=== PATIENT | male | born 1975 | race Caucasian/White ===

== ENCOUNTER 2017-01-06 18:17 | Emergency (ER) | payer BC, OTHER ==
[~2017-01-06] VITALS: Ht 182.9 cm; Wt 78.5 kg
[2017-01-06 18:32] VITALS: TEMP 36.5; Ht 182.9 cm; Wt 78.5 kg
[2017-01-06] MEDS ORDERED: CYAN100T PO (18:42)
[2017-01-06] MEDS ORDERED: IBUP-1050 PO (18:42)
[2017-01-06] MEDS ORDERED: SUMA50TA15 PO (18:42)
[2017-01-06] MEDS ORDERED: MAGN400T6 PO (18:42)
[2017-01-06 19:20] LABS: BASO % 0.4 %; BASO ABS # 0.03 K/uL (0-0.2); COMPLETE YES; EOS % 0.7 %; HEMATOCRIT 41.7 % (42-52); IG% 0.3 %; LYMPH % 36.5 %; LYMPH ABS # 2.47 K/uL (1.2-3.4); MEAN CELL VOLUME 87.2 fL (80-100); MEAN CORPUSCULAR HEMOGLOBIN 28.9 pg (25-34); MEAN CORPUSCULAR HGB CONC 33.1 g/dl (32-36); MEAN PLATELET VOLUME 10.2 fL (7.4-10.4); MONO % 6.8 %; NEUT % 55.3 %; PLATELET COUNT 242 K/uL (130-400); RED BLOOD COUNT 4.78 M/uL (4.7-6.1); WHITE BLOOD COUNT 6.76 K/uL (4.8-10.8)
[2017-01-06] MEDS ORDERED: SODIUM CHLORIDE 0.9% 1000ML 2,000 ML IV STA (19:22)
[2017-01-06 19:28] LABS: BUN/CREATININE RATIO 18.6 (10-20); CALCIUM 8.6 mg/dl (8.5-10.1); CREATININE 1.6 mg/dl (0.60-1.40); POTASSIUM 3.9 mmol/L (3.5-5.1)
--- NOTE | 2017-01-06 19:43 | EMERGENCY ROOM VISIT NOTE ---
History First contact with patient: 18:50 (Romain Arcos MD) First contact with patient: 18:50 (Renny Ojeda D.O.) Chief Complaint: DIZZY Stated Complaint: DIZZY Nursing Triage Summary: Radha arrives pale, sctot, diaphoretic from obstacle course at [employer]. EMS reports stable vital signs. Hypotensive on arrival. Patient's s/o at bedside reports radha recently started a high protein zero carb diet. Patient reports feelign dizzy and faint. Large posterior abrasion to left back and smaller ones to b/l knees (Romain Arcos MD) History of Present Illness The patient is a 41 year old male who presents to the Emergency Room with complaints of dizziness. The patient was at an obstacle course earlier this afternoon and ran it twice leading to extreme exhaustion. He also mentions that he ran on the treadmill this morning and has not been taking in many fluids. The patient also has been on a high protein low carb diet as a [facility] study for the last 3+ weeks. After running the obstacle course for the second time the patient felt very lightheaded and appeared pale. The patient states this is similar to an event he experienced several years ago at the gym when he over exerted himself and became dehydrated. The patient denies any headache or pain but does have a few abrasions from injuries sustained on the obstacle course. He has abrasions over his left bennett and scalp from hitting a tube on the course. He denies any vomiting, fever, chills, chest pain, abdominal pain, vision changes, or any other acute complaints. (Romain Arcos MD) Review of Systems See HPI for pertinent positives and negatives. A total of ten systems were reviewed and were otherwise negative. (Romain Arcos MD) Past Medical/Surgical History Medical Problems: (1) Murmur (Renny Ojeda D.O.) Social History Smoking Status: Never Smoker (Romain Arcos MD) Current/Historical Medications Scheduled Cyanocobalamin (Vitamin B-12), 100 MCG PO DAILY Magnesium Oxide (Mag-Ox), 400 MG PO DAILY Scheduled PRN Ibuprofen (Advil), 200-600 MG PO Q4H PRN for Headache Sumatriptan Succinate (Imitrex), 50 MG PO PRN PRN for Migraine Allergies Coded Allergies: Penicillins (Unverified Allergy, Unknown, ANAPHYLAXIS, 01/06/17) Patient had a reaction to PCNs as a child, not sure of the reaction. Physical Exam Vital Signs Date Time Temp Pulse Resp B/P (MAP) Pulse Ox O2 Delivery O2 Flow Rate FiO2 01/06/17 19:52 75 16 100 01/06/17 19:37 74 18 100 01/06/17 19:22 79 15 96 01/06/17 19:17 77 12 99 01/06/17 19:04 108/66 01/06/17 19:02 82 13 100 01/06/17 18:49 101/60 01/06/17 18:47 74 15 100 01/06/17 18:39 107/56 01/06/17 18:38 Room Air 01/06/17 18:33 82 01/06/17 18:32 82 14 100 01/06/17 18:32 36.5 87 22 99/47 97 01/06/17 18:26 103/55 01/06/17 18:20 99/47 (Renny Ojeda, Jona.Jason) Physical Exam GENERAL: Awake, alert, pale, in no distress HENT: Normocephalic, 1cm abrasion on the midline of the scalp EYES: Normal conjunctiva. Sclera non-icteric. NECK: Supple. No nuchal rigidity. RESPIRATORY: Clear to auscultation. CARDIAC: Regular rate, normal rhythm. Extremities warm and well perfused. Pulses equal. ABDOMEN: Soft, non-distended. No tenderness to palpation. RECTAL: Deferred. MUSCULOSKELETAL: Chest examination reveals no tenderness. Abrasions over the left side of the back. No visible ecchymosis and the patient denies any acute tenderness to palpation over the back. LOWER EXTREMITIES: Calves are equal size bilaterally and non-tender. No edema. No discoloration. NEURO: Normal sensorium. No sensory or motor deficits noted. SKIN: Abrasion over the left knee that is not actively bleeding (Romain Arcos MD) Medical Decision & Procedures Laboratory Results 01/06/17 18:40 Red Blood Count 4.78, Mean Corpuscular Volume 87.2, Mean Corpuscular Hemoglobin 28.9, Mean Corpuscular Hemoglobin Concent 33.1, Mean Platelet Volume 10.2, Neutrophils (%) (Auto) 55.3, Lymphocytes (%) (Auto) 36.5, Monocytes (%) (Auto) 6.8, Eosinophils (%) (Auto) 0.7, Basophils (%) (Auto) 0.4, Neutrophils # (Auto) 3.73, Lymphocytes # (Auto) 2.47, Monocytes # (Auto) 0.46, Eosinophils # (Auto) 0.05, Basophils # (Auto) 0.03 01/06/17 18:40 Test 01/06/17 18:30 01/06/17 18:40 Bedside Glucose 132 mg/dl (70-99) White Blood Count 6.76 K/uL (4.8-10.8) Red Blood Count 4.78 M/uL (4.7-6.1) Hemoglobin 13.8 g/dL (14.0-18.0) Hematocrit 41.7 % (42-52) Mean Corpuscular Volume 87.2 fL (80-100) Mean Corpuscular Hemoglobin 28.9 pg (25-34) Mean Corpuscular Hemoglobin Concent 33.1 g/dl (32-36) Platelet Count 242 K/uL (130-400) Mean Platelet Volume 10.2 fL (7.4-10.4) Neutrophils (%) (Auto) 55.3 % Lymphocytes (%) (Auto) 36.5 % Monocytes (%) (Auto) 6.8 % Eosinophils (%) (Auto) 0.7 % Basophils (%) (Auto) 0.4 % Neutrophils # (Auto) 3.73 K/uL (1.4-6.5) Lymphocytes # (Auto) 2.47 K/uL (1.2-3.4) Monocytes # (Auto) 0.46 K/uL (0.11-0.59) Eosinophils # (Auto) 0.05 K/uL (0-0.5) Basophils # (Auto) 0.03 K/uL (0-0.2) RDW Standard Deviation 39.9 fL (36.4-46.3) RDW Coefficient of Variation 12.3 % (11.5-14.5) Immature Granulocyte % (Auto) 0.3 % Immature Granulocyte # (Auto) 0.02 K/uL (0.00-0.02) Anion Gap 15.0 mmol/L (3-11) Est Creatinine Clear Calc Drug Dose 68.0 ml/min Estimated GFR () 62.0 Estimated GFR (Non- 53.5 BUN/Creatinine Ratio 18.6 (10-20) Calcium Level 8.6 mg/dl (8.5-10.1) Total Creatine Kinase 96 U/L (39-308) (Renny Ojeda D.O.) Medications Administered Medications (Trade) Dose Ordered Sig/Joy Route Start Time Stop Time Status Last Admin Dose Admin Sodium Chloride 2,000 ml @ 999 mls/hr Q2H1M STAT IV 01/06/17 19:22 01/06/17 21:22 01/06/17 18:35 999 MLS/HR (Renny Ojeda D.O.) Medical Decision Patient is a 41 year old male that presents with dizziness and fatigue Differential diagnosis includes dehydration, head injury, vasovagal syncope, malnutrition, and other etiologies were considered Labs: CBC, BMP, CK, UA Fluids: 2L Normal Saline (Romain Arcos MD) Impression Primary Impression: Dehydration Patient is a 41 year old male that appears to present with acute dehydration - Based on the patients symptoms and lab results the patient appears to be acutely dehydrated - The patient reports improvement of symptoms with 2L of IV Normal Saline - Patient discharged home with instructions to follow up with primary care physician in 1 week for routine blood work (Romain Arcos MD) Departure Information Dispostion Home / Self-Care Condition GOOD Referrals Gordo Wing D.O. (PCP) Patient Instructions [facility]
[2017-01-06 20:29] VITALS: BP 118/65; PULSE 84; O2SAT 97
--- NOTE | 2017-01-06 20:56 | EMERGENCY ROOM VISIT NOTE ---
History Report prepared by Julio: Yasir Krause Under the Supervision of: Dr. Renny Ojeda D.O. First contact with patient: 18:50 Chief Complaint: DIZZY Stated Complaint: DIZZY Nursing Triage Summary: Radha arrives pale, scott, diaphoretic from obstacle course at [employer]. EMS reports stable vital signs. Hypotensive on arrival. Patient's s/o at bedside reports radha recently started a high protein zero carb diet. Patient reports feelign dizzy and faint. Large posterior abrasion to left back and smaller ones to b/l knees History of Present Illness The patient is a 41 year old male who presents to the Emergency Room with complaints of constant dizziness that occurred prior to arrival. The patient states that he ran on the treadmill this morning and felt hot throughout the day. He reports that he was at a festival later in the day and went through an obstacle course twice. The patient reports that he was going through a tube and accidentally landed on the cement causing abrasions to his knee, lower abdomen, and head. He states that following the obstacle course, he started to feel dehydrated, dizzy, ill, and weak. The patient states that he typically runs and has been on a high protein, low carbohydrate diet for 22 days. 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 The patient reports that he typically takes magnesium and Vitamin B2 daily and has a penicillin allergy. Source of History: patient Onset: prior to arrival Position: other (global) Timing: constant Modifying Factors (Worsening): exertion Associated Symptoms: + weakness Review of Systems See HPI for pertinent positives & negatives. A total of 10 systems reviewed and were otherwise negative. Past Medical & Surgical Medical Problems: (1) Murmur Family History Diabetes mellitus Heart disease Hypertension Lung disease Social History Smoking Status: Never Smoker Smokeless Tobacco Use: No Alcohol Use: occasionally Drug Use: none Marital Status: Housing Status: lives with significant other Occupation Status: employed Current/Historical Medications Scheduled Cyanocobalamin (Vitamin B-12), 100 MCG PO DAILY Magnesium Oxide (Mag-Ox), 400 MG PO DAILY Scheduled PRN Ibuprofen (Advil), 200-600 MG PO Q4H PRN for Headache Sumatriptan Succinate (Imitrex), 50 MG PO PRN PRN for Migraine Allergies Coded Allergies: Penicillins (Unverified Allergy, Unknown, ANAPHYLAXIS, 01/06/17) Patient had a reaction to PCNs as a child, not sure of the reaction. Physical Exam Vital Signs Date Time Temp Pulse Resp B/P (MAP) Pulse Ox O2 Delivery O2 Flow Rate FiO2 01/06/17 20:29 84 16 118/65 97 01/06/17 19:52 75 16 100 01/06/17 19:37 74 18 100 01/06/17 19:22 79 15 96 01/06/17 19:17 77 12 99 01/06/17 19:04 108/66 01/06/17 19:02 82 13 100 01/06/17 18:49 101/60 01/06/17 18:47 74 15 100 01/06/17 18:39 107/56 01/06/17 18:38 Room Air 01/06/17 18:33 82 01/06/17 18:32 82 14 100 01/06/17 18:32 36.5 87 22 99/47 97 01/06/17 18:26 103/55 01/06/17 18:20 99/47 Physical Exam CONSTITUTIONAL/VITAL SIGNS: Reviewed / noted above. GENERAL: Non-toxic in appearance. INTEGUMENTARY: Warm, dry, and [place]. HEAD: Abrasion to top of head. Normocephalic. EYES: without scleral icterus or trauma. ENT/OROPHARYNX: clear and moist. LYMPHADENOPATHY/NECK: Is supple without lymphadenopathy or meningismus. RESPIRATORY: Lungs clear and equal. CARDIOVASCULAR: Regular rate and rhythm. GI/ABDOMEN: Abrasion to abdomen. Soft and nontender. No organomegaly or pulsatile mass. No rebound or guarding. Normal bowel sounds. EXTREMITIES: Abrasion to right leg. Warm and well perfused. BACK: No CVA tenderness. NEUROLOGICAL: Intact without focal deficits. PSYCHIATRIC: normal affect. MUSCULOSKELETAL: Normally developed with good muscle tone. Medical Decision & Procedures Laboratory Results 01/06/17 18:40 Red Blood Count 4.78, Mean Corpuscular Volume 87.2, Mean Corpuscular Hemoglobin 28.9, Mean Corpuscular Hemoglobin Concent 33.1, Mean Platelet Volume 10.2, Neutrophils (%) (Auto) 55.3, Lymphocytes (%) (Auto) 36.5, Monocytes (%) (Auto) 6.8, Eosinophils (%) (Auto) 0.7, Basophils (%) (Auto) 0.4, Neutrophils # (Auto) 3.73, Lymphocytes # (Auto) 2.47, Monocytes # (Auto) 0.46, Eosinophils # (Auto) 0.05, Basophils # (Auto) 0.03 01/06/17 18:40 Test 01/06/17 18:30 01/06/17 18:40 Bedside Glucose 132 mg/dl (70-99) White Blood Count 6.76 K/uL (4.8-10.8) Red Blood Count 4.78 M/uL (4.7-6.1) Hemoglobin 13.8 g/dL (14.0-18.0) Hematocrit 41.7 % (42-52) Mean Corpuscular Volume 87.2 fL (80-100) Mean Corpuscular Hemoglobin 28.9 pg (25-34) Mean Corpuscular Hemoglobin Concent 33.1 g/dl (32-36) Platelet Count 242 K/uL (130-400) Mean Platelet Volume 10.2 fL (7.4-10.4) Neutrophils (%) (Auto) 55.3 % Lymphocytes (%) (Auto) 36.5 % Monocytes (%) (Auto) 6.8 % Eosinophils (%) (Auto) 0.7 % Basophils (%) (Auto) 0.4 % Neutrophils # (Auto) 3.73 K/uL (1.4-6.5) Lymphocytes # (Auto) 2.47 K/uL (1.2-3.4) Monocytes # (Auto) 0.46 K/uL (0.11-0.59) Eosinophils # (Auto) 0.05 K/uL (0-0.5) Basophils # (Auto) 0.03 K/uL (0-0.2) RDW Standard Deviation 39.9 fL (36.4-46.3) RDW Coefficient of Variation 12.3 % (11.5-14.5) Immature Granulocyte % (Auto) 0.3 % Immature Granulocyte # (Auto) 0.02 K/uL (0.00-0.02) Anion Gap 15.0 mmol/L (3-11) Est Creatinine Clear Calc Drug Dose 68.0 ml/min Estimated GFR () 62.0 Estimated GFR (Non- 53.5 BUN/Creatinine Ratio 18.6 (10-20) Calcium Level 8.6 mg/dl (8.5-10.1) Total Creatine Kinase 96 U/L (39-308) Laboratory results as stated above per my review. Medications Administered Medications (Trade) Dose Ordered Sig/Joy Route Start Time Stop Time Status Last Admin Dose Admin Sodium Chloride 2,000 ml @ 999 mls/hr Q2H1M STAT IV 01/06/17 19:22 01/06/17 21:22 01/06/17 18:35 999 MLS/HR ECG Indication: weakness Rate (beats per minute): 86 Rhythm: normal sinus Findings: no acute ischemic change, no ectopy ED Course 1903: Previous medical records were reviewed. The patient was evaluated in room C06. A complete history and physical examination was performed. 1921: Sodium Chloride 2000 ml @ 999 mls/hr IV. 1944: On reevaluation, the patient is resting comfortably. I discussed the results and findings with the patient. He verbalized agreement of the treatment plan. He was discharged home. Medical Decision Differential includes acute coronary syndrome, myocardial infarction, CVA, TIA, anemia, infection, pneumonia, UTI, pyelonephritis, poor nutrition, dehydration, electrolyte disturbance,hypoglycemia. Medication Reconciliation: I attest that I have personally reviewed the patient' s current medication list. Patient was found to have a slightly elevated blood pressure due to circumstances. I do not believe that the patient requires hypertension monitoring. This is a 41-year-old male who presents to the ED with a chief complaint of dizziness. The patient was running a small course. He did it twice. The patient had to drive through some tubes and over a fence. The patient has multiple abrasions and contusions on his body. He was dizzy after the second episode and came in for evaluation. He feels like he might be dehydrated. The patient has been on a low-carb diet for the past few weeks. The patient has a normal CBC. His BUN is 30 creatinine is 1.6. EKG shows a normal sinus rhythm. The patient's symptoms are likely related to dehydration and some heat exhaustion. He was treated with a couple liters of IV fluids. He was feeling better. He was felt to be stable for discharge and outpatient follow-up. Impression Primary Impression: Dehydration Additional Impression: Dizziness Scribe Attestation The scribe's documentation has been prepared under my direction and personally reviewed by me in its entirety. I confirm that the note above accurately reflects all work, treatment, procedures, and medical decision making performed by me. Departure Information Dispostion Home / Self-Care Referrals No Doctor, Assigned (PCP) Patient Instructions My [facility] Additional Instructions Problem Qualifiers
== END 2017-01-06 20:49 | disposition home or self-care (01) ==
LOC: EDBD 18:17 → C.EDC 18:19
DX: E86.0 Dehydration (principal); R42 Dizziness and giddiness; Z83.3 Family history of diabetes mellitus; Z82.49 Family history of ischemic heart disease and other diseases of the circulatory system